=== PATIENT | female | born 1975 | race Caucasian/White ===

== ENCOUNTER → 2023-03-04 | Day surgery (SDC) | payer OTHER, MEDICAID | END | disposition home or self-care (01) | LOC: MSO 09:13 | DX: Z12.11 Encounter for screening for malignant neoplasm of colon (principal); F17.210 Nicotine dependence, cigarettes, uncomplicated; E66.01 Morbid (severe) obesity due to excess calories; Z68.44 Body mass index [BMI] 60.0-69.9, adult | CPT/HCPCS: 00812; J2704; J7120 ==